=== PATIENT | female | born 1985 | race Two or more races ===

== ENCOUNTER 2016-11-20 15:07 | Emergency (ER) | payer OTHER ==
[2016-11-20 15:15] VITALS: BP 149/93
== END 2016-11-20 17:55 | disposition home or self-care (01) ==
LOC: ED 15:07
DX: N61.0 Mastitis without abscess (principal)

== ENCOUNTER 2018-10-28 23:30 | Emergency (ER) | payer OTHER ==
[~2018-10-28] VITALS: Ht 165.1 cm; Wt 86.2 kg
[~2018-10-28 23:30] MED LIST: APAP/HYDROCODON1 T13 PO; COL100 PO; MOT600 PO; NORCO1 TA2 PO; ZOFRAN8 MG PO
[2018-10-28 23:38] VITALS: Ht 165.1 cm; Wt 86.2 kg
[2018-10-29 01:09] VITALS: BP 135/85
== END 2018-10-29 01:09 | disposition home or self-care (01) ==
LOC: ED 23:30
DX: S82.891A Other fracture of right lower leg, initial encounter for closed fracture (principal); X50.1XXA Overexertion from prolonged static or awkward postures, initial encounter; Y93.89 Activity, other specified; Y92.89 Other specified places as the place of occurrence of the external cause; Y99.8 Other external cause status
CPT/HCPCS: Q0092

== ENCOUNTER 2018-11-10 12:22 | Emergency (ER) | payer OTHER ==
[~2018-11-10] VITALS: Ht 165.1 cm; Wt 90.7 kg
[2018-11-10 12:33] VITALS: BP 136/93; Ht 165.1 cm; Wt 90.7 kg
== END 2018-11-10 14:09 | disposition home or self-care (01) ==
LOC: ED 12:22
DX: S82.61XD Displaced fracture of lateral malleolus of right fibula, subsequent encounter for closed fracture with routine healing (principal); Z98.890 Other specified postprocedural states; X58.XXXD Exposure to other specified factors, subsequent encounter
CPT/HCPCS: J1885

== ENCOUNTER 2019-04-27 13:11 | Emergency (ER) | payer OTHER ==
[~2019-04-27] VITALS: Ht 172.7 cm; Wt 87.5 kg
[2019-04-27 14:05] VITALS: Ht 172.7 cm; Wt 87.5 kg
[2019-04-27 15:47] LABS: FREE T4 0.98 ng/dL (0.76-1.46)
[2019-04-27 16:15] VITALS: BP 122/83
== END 2019-04-27 16:19 | disposition home or self-care (01) ==
LOC: ED 13:11
PROVIDERS: Emergency Medicine
DX: R07.0 Pain in throat (principal); R51 Headache
CPT/HCPCS: 36415; 84439

== ENCOUNTER 2020-01-27 11:36 | Emergency (ER) | payer OTHER ==
[~2020-01-27] VITALS: Ht 165.1 cm; Wt 91.2 kg
[2020-01-27 12:23] VITALS: Ht 165.1 cm; Wt 91.2 kg
[2020-01-27 13:38] VITALS: BP 141/97
== END 2020-01-27 13:38 | disposition home or self-care (01) ==
LOC: ED 11:36
DX: S05.01XA Injury of conjunctiva and corneal abrasion without foreign body, right eye, initial encounter (principal); X58.XXXA Exposure to other specified factors, initial encounter; Y93.89 Activity, other specified; Y92.89 Other specified places as the place of occurrence of the external cause; Y99.8 Other external cause status